=== PATIENT | male | born 1935 | race Caucasian/White ===

== ENCOUNTER 2025-06-09 00:26 | Emergency (ER) | payer OTHER, SELFPAY ==
[2025-06-09] VITALS (10 sets, daily range): BP systolic 87–156; BP diastolic 53–77; BMI 33.8
[2025-06-09 01:03] LABS: Hematocrit 41.3 % (39.0-52.0); Hemoglobin 14.2 g/dL (13.0-18.0); Mean Corp Hgb Conc. 34.4 g/dL (33.0-37.0); Mean Corpuscular Volume 87.1 fL (80.0-94.0); Nucleated Red Blood Cells % 0 % (-); Platelet Count 198 10^3/uL (130-400); Red Cell Dist. Width 15.0 % (11.5-14.5)
[2025-06-09 01:25] LABS: ALT (SGPT) 41 U/L (0-50); AST (SGOT) 28 U/L (17-59); Albumin 4.2 g/dl (3.5-5.0); Alkaline Phosphatase 43 U/L (38-126); Blood Urea Nitrogen 19 mg/dl (9-20); Calcium 9.5 mg/dl (8.4-10.2); Carbon Dioxide 23 mmol/L (22-30); Chloride 103 mmol/L (98-107); Estimated Creatinine Clearance 100 ml/min; Glucose 110 mg/dl (70-99); Potassium 4.2 mmol/L (3.5-5.1); Sodium 135 mmol/L (135-145); Total Protein 6.7 g/dl (6.3-8.2); eGFR > 60.00
[2025-06-09 01:38] LABS: Troponin I < 0.012 ng/ml
--- NOTE | 2025-06-09 01:56 | ED.GENMED ---
History of Present Illness
General
Chief Complaint: Heart Rate Problem
Source: patient and ambulance crew
Exam Limitations: none
Time Seen by Provider: 06/09/25 00:35
Nursing documentation reviewed up to this point in time: agreed with
History of Present Illness
History of Present Illness:
The patient is an 89-year-old male who resides with his , independent living apartment and [facility]. Presenting with episodes of palpitations and sweating that began while attempting a bowel movement this evening around 7:30 PM. The
patient describes feeling his heart 'beating hard' and notes that he has experienced similar sensations many years ago, during a stress test where an 'extra beat' was noted at that time. The current episodes occurred two to three times tonight. He
denies experiencing dizziness, lightheadedness, pain, nausea, shortness of breath, fever, back pain, or urinary symptoms. He reports no previous history of similar sweating with palpitations. The patient recently received a flu shot 3 days ago. He
had a mole removed from his back 1 day ago. He also reports taking high blood pressure medication and has a history of diabetes managed with medication. Additionally, he uses CPAP therapy for sleep apnea.
He has not had a fever nor chills, no cough nor shortness of breath. He does note very mild ache bilateral lower lateral abdomen region throughout the day today. He is unsure if this is related to the flu shot or not. He has had no dysuria no
urgency no hematuria. No back pain or flank pain.
He does follow with a physical education instructor once yearly at [facility].
Patient arrives via EMS. Prehospital EKG reportedly unremarkable.
Past History
Past History
ED Past Medical History: HTN, Hypercholesterolemia, NIDDM and Other (Obesity, obstructive sleep apnea-uses CPAP, osteoarthritis of left shoulder, BPH)
ED Past Surgical History: Orthopedic (Bilateral shoulder replacement) and Urological (Prostatectomy)
Social History
Tobacco: Former smoker (Quit cigarettes 1980)
Alcohol: None
Drug: None
Personal:
Living: with family
Employment: Retired
Family History
Family History: Cancer (Father with history of prostate cancer, mother with history of ovarian cancer, sister with history of breast cancer) and Other (Noncontributory)
Phy Exam
Physical Exam
Physical Exam:
GENERAL: 89-year-old gentleman appears his stated age, bright and alert, pleasant, appears in no acute distress. Easily communicative. Afebrile.
EYE: anicteric
NECK: Supple, nontender, no meningismus, no significant adenopathy.
ENT: oral mucosa is moist. No rhinorrhea.
CARDIAC: Regular rate and rhythm. no murmur.
LUNGS: Clear breath sounds bilaterally, no acute respiratory distress, no wheezes/rales/rhonchi
ABDOMEN: Rotund, soft, nondistended, mild tenderness left lateral flank to left lower quadrant, no r/g, no cvat. normoactive BS.
NEUROLOGICAL: Alert and oriented x3, no focal neuro deficits.
SKIN: Warm and dry, normal color, skin intact. No rash.
MUSCULOSKELETAL: No C/C/E. peripheral pulses are full and equal b/l. No palpable tenderness.
PSYCH: Normal and appropriate interaction.
Course
Orders/Labs/Results
Orders:
Orders
06/09/25 00:27
EKG [Electrocardiogram (*1)] Urgent
Reason for Study: Palpitations
EKG- Treatment ONCE
06/09/25 00:52
Complete Blood Count/With Diff Urgent
Comprehensive Metabolic Panel Urgent
TSH Reflex To Free T4 Urgent
Comment: ADD ON
Troponin I Urgent
06/09/25 01:02
Electrocardiogram (*1) Urgent
Reason for Study: Chest Pain
Other Reason for Exam: repeat
EKG- Treatment ONCE
06/09/25 01:54
Add On- LAB Urgent
Tests Added?: TSH w reflex to free T-4, Mg
06/09/25 02:19
Urinalysis Reflex To Culture Urgent
Date Specimen was Collected: 06/09/25
Time Specimen was Collected: 02:15
Urine Microscopic Reflex Cult Urgent
Urine Culture Urgent
BLAIR Source: U
Specimen Description:
Date Specimen was Collected: 06/09/25
Time Specimen was Collected: 02:15
06/09/25 03:45
CT Abd/pelvis W Iv Cont Urgent
Comment:
Reason For Exam: left sided abd pain x 2 days
06/09/25 04:12
Troponin I Urgent
Abnormal Lab Results
06/09/25 06/09/25
00:52 02:19
WBC 12.1 H 10^3/uL
(4.8-10.8)
RDW 15.0 H %
(11.5-14.5)
MPV 10.7 H fL
(7.4-10.4)
Abs Immat Gran (auto) 0.1 H 10^3/uL
(0-0.05)
Absolute Neuts (auto) 8.4 H 10^3/uL
(1.4-6.5)
Absolute Monos (auto) 1.3 H 10^3/uL
(0.1-0.6)
Lymphocytes % 16.8 L %
(20.5-51.1)
Monocytes % 10.5 H %
(1.7-9.3)
Creatinine 0.6 L mg/dL
(0.7-1.3)
Glucose 110 H mg/dl
(70-99)
Leukocyte Esterase Rfl 2+ A
(Negative)
Urine Bacteria (Reflex) Few A
(Negative)
06/09/25 00:52
06/09/25 00:52
Vital Signs
Initial and Last Documented VS:
Initial Vital Signs
Pulse Resp
94 16
06/09/25 00:29 06/09/25 00:29
Last Documented Vital Signs
Temp Pulse Resp BP Pulse Ox
98.4 F 84 23 137/70 90
06/09/25 00:31 06/09/25 06:00 06/09/25 06:00 06/09/25 06:00 06/09/25 05:30
MDM/Problems Addressed
Differential Diagnosis Includes:
The Differential Diagnosis includes, in no particular order and is not limited to:
1. Arrhythmia
2. Atrial fibrillation
3. Anxiety or panic attack
4. Hypertension-related palpitations
5. Medication side effects
6. Hyperthyroidism
7. Electrolyte imbalances
8. Cardiac ischemia
9. Vasovagal response
10. Anemia
MDM/Problems Addressed:
Acute: Palpitations, sweating.
Chronic: Hypertension, diabetes, sleep apnea.
EKG shows normal sinus rhythm without ectopy. Right bundle branch block. First-degree AV block. There is no old EKG to compare.
Monitor shows normal sinus rhythm with rare PVCs.
Palpitations could certainly be PVCs in nature but there is some concern with associated diaphoresis.
Will continue monitoring tech. Will check labs including TSH, troponin, magnesium. Will check urinalysis as well.
Consider imaging depending on clinical course and laboratory studies.
Chronic conditions affecting care: DM and HTN
*Radiology
Radiology exam reviewed: radiology read reviewed
*Pulse Oximetry
SaO2: 97
Oxygen Mode of Delivery: Room air
Patient hypoxic: no
*EKG
Interpreted by ED Provider?: Yes
Interpretation: abnormal
Comparison EKG: no comparison EKG present
Rate: normal
Rhythm: sinus
[place]: normal axis
Interval: first degree heart block
QRS Pattern: right bundle branch block
Ischemia: no ischemia
*Manager Social Work Interpretation
Rate: normal
Interpretation: normal
Rhythm: sinus
*Critical Care Note
Total Time (30-74mins, 75-104mins- exclusive of procedures): Not Applicable
Update Note
Update Note:
03:40
Patient remains comfortable without return of palpitations nor diaphoresis.
Labs thus far unremarkable save for mildly elevated white blood cell count of 12.1. He remains afebrile.
Troponin is negative.
TSH is normal.
Monitor shows normal sinus rhythm with occasional PACs. He remains hemodynamically stable.
He continues with mild left lateral to left lower quadrant tenderness to palpation.
Urinalysis is overall unremarkable.
Will plan to repeat troponin.
Due to intermittent diaphoresis, left-sided abdominal pain will check CT abdomen and pelvis.
06:25
Patient remains asymptomatic.
Monitor shows normal sinus rhythm with PACs.
He remains hemodynamically stable.
Repeat troponin remains negative.
CT abdomen pelvis is unremarkable. No acute findings in the abdomen.
Will discharge to home with recommendations he follow-up with his primary physical education instructor. Recommend he give the office a call on Wednesday.
Strict return precautions discussed.
ED Attending Note
-
Portions of this chart may have been created with voice recognition software.� Occasional wrong word or��sound alike� substitutions may have occurred due to the inherent limitations of voice recognition software.
Discharge Plan
Departure
Patient Disposition: Home (Routine Discharge)
Date of Disposition: 06/09/25
Time of Disposition: 06:26
Patient with high blood pressure during this ER visit?: No
Discharge Problem:
Heart palpitations, Intermittent diaphoresis
Instructions: Palpitations (DC)
Prescriptions:
No Action
multivitamin [Multi-Daily] Tablet
1 tab PO DAILY
celecoxib 200 mg Capsule
200 mg PO MONTHLY
lisinopril-hydrochlorothiazide 20-12.5 mg Tablet
1 tab PO BID
diltiazem HCl 240 mg Capsule,Extended Release 24 Hr
240 mg PO DAILY
allopurinol 100 mg Tablet
100 mg PO DAILY
aspirin 81 mg Capsule,Delayed Release(Dr/Ec)
81 mg PO DAILY
ascorbic acid (vitamin C) [Vitamin C Buffered] 500 mg Tablet
500 mg PO DAILY
repaglinide 0.5 mg Tablet
0.5 mg PO TID
tamsulosin 0.4 mg Capsule
0.4 mg PO DAILY
metformin 1,000 mg Tablet
1,000 mg PO BID
cholecalciferol (vitamin D3) [Vitamin D3] 25 mcg (1,000 unit) Capsule
25 mcg PO DAILY
dutasteride 0.5 mg Capsule
0.5 mg PO MOWEFR
[place] 3 Capsule
0 mg PO BID
Rx Instructions:
180EPA/120DHA
rosuvastatin 5 mg Tablet
5 mg PO DAILY
cinnamon bark [Cinnamon] 500 mg Capsule
600 mg PO DAILY
coenzyme Q10 [Co Q-10] 200 mg Capsule
200 mg PO DAILY
red yeast rice 600 mg Capsule
1,200 mg PO BID
Krill Oil ([place] 3 and 6) 1000-130(40-80) mg Capsule
1 cap PO DAILY
Rx Instructions:
krill oil 60 epa/27.5 DHA
niacin 500 mg Capsule
500 mg PO DAILY
Tart Andersen Extract 1,000 mg Capsule
465 mg PO DAILY
meloxicam submicronized 5 mg Capsule
5 mg PO DAILY
Glucosamine Chondroitin 550-30-1 mg Capsule
500 cap PO DAILY
Rx Instructions:
500/250
psyllium husk
0.52 g PO DAILY
vitamin K2
50 mg PO DAILY
Referrals:
Louise Carty MD [Family Provider, Internal Medicine] - Call in 1-3 days for appt
Activity Restrictions/Additional Instructions:
Call your physical education instructor office on Wednesday to schedule follow-up appointment regarding palpitations.
If palpitations recur especially if accompanied with lightheadedness, chest pain, dizziness, or any other worrisome symptom, prompt return to the ER for further evaluation.
Interventions
Interventions:
*Risk Screen - Suicide Last Done: 06/09/25 00:31
*General Assessment Last Done: 06/09/25 01:00
*Neglect/Abuse Screening Last Done: 06/09/25 00:31
*ED- Fall Risk Assessment Last Done: 06/09/25 00:31
*ED COVID-19 Vaccine History Last Done: 06/09/25 00:31
ED- Cardiac Assessment Last Done: 06/09/25 01:00
ED- Pulmonary Assessment Last Done: 06/09/25 01:00
Discharge Date and Time
Print Language: FAROESE
[2025-06-09 02:34] LABS: Urine Character Clear (Clear)
[2025-06-09 03:28] LABS: Urine Red Blood Cell 0-2 /HPF (0-2); Urine Squamous Cell 0-2 /LPF (Few)
[2025-06-09 05:01] LABS: Troponin I < 0.012 ng/ml
[2025-06-09] MEDS: TYLENOL 1000 MG PO (07:26)
== END 2025-06-09 09:45 | disposition home or self-care (01) ==
LOC: EMR 00:26
PROVIDERS: EMERGENCY PHYSICIAN Emergency Medicine; FAMILY PHYSICIAN Internal Medicine Geriatric Medicine
DX: R00.2 Palpitations (principal); R61 Generalized hyperhidrosis; I45.10 Unspecified right bundle-branch block; I10 Essential (primary) hypertension; I44.0 Atrioventricular block, first degree; E78.00 Pure hypercholesterolemia, unspecified; E11.9 Type 2 diabetes mellitus without complications; G47.33 Obstructive sleep apnea (adult) (pediatric); Z87.891 Personal history of nicotine dependence
CPT/HCPCS: 99284; 74177; 80053; 81003; 81015; 84443; 84484; 85025; 87086; 93005; Q9967